=== PATIENT | female | born 1960 | race African-American/Black ===

== ENCOUNTER 2018-03-05 15:35 | Emergency (ER) | payer OTHER ==
[~2018-03-05] VITALS: Ht 167.6 cm; Wt 110.0 kg
[~2018-03-05 15:35] MED LIST: ETOMIDATE 2MG/ML 10ML VIAL IV ONE; SODIUM CHLORIDE 0.9% 10ML VIAL ONE; SUCCINYLCHOLINE CHLORIDE 200MG/10ML IV ONE
[2018-03-05] MEDS ORDERED: DEXTROSE 50% WATER 50ML SYRINGE IV ONE ×3 (15:49→18:15)
[2018-03-05] MEDS ORDERED: LOPHC2 PO (15:50)
[2018-03-05] MEDS ORDERED: PROPOFOL 200MG/20ML VIAL IV ONE (16:15)
[2018-03-05] MEDS ORDERED: SUCCINYLCHOLINE CHLORIDE 200MG/10ML IV ONE (16:15)
[2018-03-05] MEDS ORDERED: ETOMIDATE 2MG/ML 10ML VIAL IV ONE (16:15)
[2018-03-05] MEDS ORDERED: PROPOFOL 10MG/ML 100ML 100 ML IV ONE (16:17)
[2018-03-05 16:35] LABS: CLARITY URINE CLEAR (CLEAR); COLOR URINE YELLOW (YELLOW); KETONES URINE NEGATIVE (NEGATIVE); LEUKOCYTE ESTERASE URINE NEGATIVE (NEGATIVE); NITRITE URINE NEGATIVE (NEGATIVE); OCCULT BLOOD URINE TRACE (NEGATIVE); PROTEIN URINE NEGATIVE (NEGATIVE); SPECIFIC GRAVITY URINE 1.016 (1.005-1.030); UROBILINOGEN URINE 0.2 E.U./dL (0.2-1.0)
[2018-03-05 17:07] LABS: *BENZODIAZEPINES SCREEN URINE NEGATIVE (NEGATIVE); *COCAINE SCREEN URINE PRESUMTIVE POSITIVE (NEGATIVE); METHADONE URINE SCREEN NEGATIVE (NEGATIVE); OPIATES URINE SCREEN NEGATIVE (NEGATIVE)
[2018-03-05 17:08] LABS: *AMPHETAMINES SCREEN URINE NEGATIVE (NEGATIVE); *BARBITURATES SCREEN URINE NEGATIVE (NEGATIVE); CANNABINOID URINE SCREEN PRESUMTIVE POSITIVE (NEGATIVE); PHENCYCLIDINE URINE SCREEN NEGATIVE (NEGATIVE)
[2018-03-05] MEDS ORDERED: HYDRALAZINE 20MG/ML VIAL IV ONE ×2 (17:30→21:30)
[2018-03-05] MEDS ORDERED: DEXT 5%/0.9% NACL 1,000 ML IV ONE (17:30)
[2018-03-05 17:39] LABS: BASOPHILS % 0.1 % (0.0-2.0); EOSINOPHILS % 0.1 % (0.0-5.0); HEMATOCRIT. 40.3 % (36.0-48.0); HEMOGLOBIN. 13.1 g/dL (12.0-16.0); LYMPHOCYTES % 7.7 % (20.0-50.0); MEAN CORPUSCULAR HEMOGLOBIN 27.7 pg (28.0-32.0); MEAN CORPUSCULAR VOLUME 85.5 fL (81.0-99.0); MEAN PLATELET VOLUME 8.3 fl (7.4-10.4); MONOCYTES % 5.6 % (2.0-8.0); NEUTROPHILS % 86.5 % (40.0-76.0); PLATELET 205 x1000/uL (130-400); RED BLOOD CELL COUNT 4.72 mill/uL (4.2-5.4)
[2018-03-05 17:46] LABS: CHLORIDE 105 mEq/L (98-107)
[2018-03-05 17:47] LABS: PARTIAL THROMBOPLASTIN TIME 27.8 sec (23.4-31.0); PROTHROMBIN TIME 9.8 sec (9.1-11.1)
[2018-03-05 17:50] LABS: ETHANOL BLOOD < 10 mg/dL
[2018-03-05 17:50] LABS: BG BASE EXCESS -0.6 mmol/L (-2.0-2.0); BG CARBOXYHEMOGLOBIN 0.6 % (0.5-1.5); BG DEOXYHEMOGLOBIN 3.1 % (0.0-5.0); BG FRACTION INSPIRED OXYGEN 30; BG HCO3 ACT 23.4 mmol/L (22.0-26.0); BG METHEMOGLOBIN 0.3 % (0.0-1.5); BG OXYGEN SATURATION 96.9 % (92.0-98.5); BG PCO2 36.5 mmHg (35.0-45.0); BG PH 7.424 (7.350-7.450); BG PO2 91.5 mmHg (75.0-100.0); BG SAMPLE SITE RIGHT BRACHIAL; BG TIDAL VOLUME(mL) 500 mL; BG TOTAL HEMOGLOBIN 13.6 g/dL (12.0-18.0); BG VENT MODE VENT - A/C; BG VENT RATE 14 set
[2018-03-05 17:55] LABS: BETA HYDROXYBUTYRATE 0.1 mMol/L (0.0-0.3)
[2018-03-05] MEDS ORDERED: MIDAZOLAM HCL 50 MG in DEXTROSE 5% WATER 40 ML IV ONE ×2 (18:00→18:15)
[2018-03-05 18:01] LABS: AMMONIA 40 uMol/L (<32)
[2018-03-05] MEDS: DEXAMETHASONE 4MG/ML 1ML VIAL IV SCH (18:49)
[2018-03-05] MEDS ORDERED: MANNITOL 12.5G (25%) VIAL 50ML IV ONE (21:30)
[2018-03-05] MEDS ORDERED: MANNITOL 20% 500 ML IV SCH (23:00)
[2018-03-05] MEDS ORDERED: MANNITOL 20% (20GM/100ML) BAG 500ML PREMIX IV SCH (23:00)
[2018-03-06] MEDS ORDERED: DEXAMETHASONE 4MG/ML 1ML VIAL IV SCH
[2018-03-06] MEDS: MANNITOL 20% 250 ML IV SCH ×2 (00:06→09:53)
[2018-03-06] MEDS ORDERED: MIDAZOLAM HCL 50 MG in DEXTROSE 5% WATER 40 ML IV PRN (00:15)
[2018-03-06] MEDS: FUROSEMIDE 40MG/4ML VIAL IVP SCH ×2 (00:45→09:00)
[2018-03-06] MEDS: DEXAMETHASONE 4MG/ML 1ML VIAL IV SCH ×2 (01:20→10:01)
[2018-03-06] MEDS ORDERED: CEFEPIME 1,000 MG in DEXTROSE 5% WATER 50 ML IV NR (03:00)
[2018-03-06] MEDS ORDERED: KETOROLAC 15MG/ML VIAL IV NR (03:00)
[2018-03-06] MEDS ORDERED: ACETAMINOPHEN 650MG SUPP PR NR (03:00)
[2018-03-06] MEDS ORDERED: VANCOMYCIN 1 G PREMIX 200 ML IV NR (03:00)
[2018-03-06] MEDS ORDERED: MANNITOL 20% (20GM/100ML) BAG 500ML PREMIX IV ONE (06:15)
[2018-03-06 12:02] VITALS: BP 137/88
[2018-03-12 17:06] LABS: 7-AMINOCLONAZEPAM CONFIRM Negative (.); ALPRAZOLAM CONFIRM Negative (.); CHLORDIAZEPOXIDE CONFIRM Negative (.); CLONAZEPAM CONFIRM Negative (.); DESMETHYLCHLORDIAZEPOXIDE Negative (.); DIAZEPAM CONFIRM 11 ng/mL (.); FLURAZEPAM CONFIRM Negative (.); LORAZEPAM CONFIRM Negative (.); MIDAZOLAM CONFIRM Negative (.); OXAZEPAM CONFIRM Negative (.); TEMAZEPAM CONFIRM Negative (.); TRIAZOLAM CONFIRM Negative (.)
[2018-03-18 10:08] LABS: BARBITURATE SCREEN Negative ug/mL (Cutoff:0.1); BENZODIAZEPINE SCREEN ++POSITIVE++ ng/mL (Cutoff:20); OPIATES SCREEN Negative ng/mL (Cutoff:5); PHENCYCLIDINE SCREEN Negative ng/mL (Cutoff:8)
== END 2018-03-06 12:11 | disposition short-term general hospital (02) ==
LOC: EDBD 15:47 → ER 15:47 → EDBEDREQTM 16:25 → EDBEDREQ 16:25 → CANBEDREQ 03-06 09:46 → ER 03-06 12:11
DX: A41.9 Sepsis, unspecified organism (principal); J96.00 Acute respiratory failure, unspecified whether with hypoxia or hypercapnia; E11.649 Type 2 diabetes mellitus with hypoglycemia without coma; G93.41 Metabolic encephalopathy; T40.5X1A Poisoning by cocaine, accidental (unintentional), initial encounter; F14.10 Cocaine abuse, uncomplicated; T40.7X1A Poisoning by cannabis (derivatives), accidental (unintentional), initial encounter; F12.10 Cannabis abuse, uncomplicated; F32.9 Major depressive disorder, single episode, unspecified; F10.20 Alcohol dependence, uncomplicated; Y90.9 Presence of alcohol in blood, level not specified; I10 Essential (primary) hypertension; R31.9 Hematuria, unspecified; E87.2 Acidosis; Y92.89 Other specified places as the place of occurrence of the external cause; Z78.1 Physical restraint status
CPT/HCPCS: 31500; 36415; 36600; 70450; 71045; 74176; 80053; 80305; 80307; 81003; 82010; 82140; 82375; 82805; 82962; 83036; 83605; 83880; 84484; 85025; 85610; 85651; 85730; 87040; 87086; 93005; 93970; 96365; 96366; 96367; 96368; 96375; 99291; 99292; A4216; G0482; J0330; J0360; J0692; J1100; J1885; J1940; J2150; J2250; J2704; J3370; J3490; J7030; Z7610; 94002; J7042; J7060